=== PATIENT | female | born 1960 | race Caucasian/White ===

== ENCOUNTER 2021-09-01 10:44 | Emergency (ER) | payer OTHER, SELFPAY ==
--- NOTE | ~2021-09-01 | XR_ITS ---
XR knee RT 3V 09/01/2021 11:14 Indication: Right knee pain Procedure: Right knee pain Comparison: 3 views right knee Findings: Mild osteoarthritis of the right knee. No fracture, subluxation or dislocation. No signific ant joint effusion. No foreign bodies. Impression: 1: No acute fracture. Reviewed, dictated and finalized at location B. ICAL SUPERVISOR Impression: 1: No acute fracture.
[2021-09-01 10:53] VITALS: BP 162/86; PULSE 85; RESP 16; TEMP 37.2; O2SAT 99
--- NOTE | 2021-09-01 10:54 | ED.LOWEXIN ---
HPI - Extremity Injury (Lower) General Chief Complaint: Extremity Injury, Lower Stated Complaint: right knee pain Time Seen by Provider: 09/01/21 10:54 Source: patient, RN notes reviewed and old records reviewed Mode of arrival: ambulatory Limitations: no limitations History of Present Illness HPI Narrative: 61 yo female presents to the [facility] with C/O right knee pain since yesterday. States that she was walking up stairs carrying bottled water and felt a pop. She has a HX of orthopedic surgery in both knees. Has been resting, elevating and taking Tylenol as needed. Does have mild swelling to the right knee. MD complaint: knee injury (right) Related Data Home Medications Medication Instructions Recorded Confirmed alprazolam [Xanax] 0.5 mg PO DAILY 07/27/19 09/01/21 bupropion HCl 300 mg PO QAM 07/27/19 09/01/21 levothyroxine 50 mcg PO DAILY 07/27/19 09/01/21 lisinopril-hydrochlorothiazide 1 tablet PO DAILY 07/27/19 09/01/21 oxybutynin chloride 10 mg PO DAILY 07/27/19 09/01/21 zolpidem [Ambien] 5 mg PO HS 07/27/19 09/01/21 atorvastatin 20 mg PO DAILY 09/01/21 09/01/21 montelukast 10 mg PO DAILY 09/01/21 09/01/21 Allergies Allergy/AdvReac Type Severity Reaction Status Date / Time No Known Allergies Allergy Verified 09/01/21 11:02 Review of Systems Review of Systems: All systems reviewed & are unremarkable except as noted in HPI and below Constitutional: Constitutional: Reports no additional constitutional complaints Eyes: Eyes: Reports no additional eye complaints ENT: Reports system reviewed and no additional complaints, except as documented Cardiovascular: Cardiovascular: Reports no additional cardiovascular complaints Respiratory: Respiratory: Reports no additional respiratory complaints Gastrointestinal: Gastrointestinal: Reports no additional gastrointestinal complaints Musculoskeletal: Musculoskeletal: Reports as per HPI, Reports arthralgias (medial right knee) and Reports joint swelling (medial right knee) Integumentary/Breasts: Skin/Breast: Reports system reviewed and no additional complaints, except as docu and Denies rash Neurologic: Reports system reviewed and no additional complaints, except as documented Psychiatric: Psychiatric: Reports no additional psychiatric complaints Allergic/Immunologic: Allergic/Immunologic: Reports no additional allergic/immunologic complaints PMFSH Past Medical History Medical History (Updated 09/01/21 @ 11:04 by Lacie Mercer APRN) Anxiety and depression High cholesterol History of high blood pressure Thyroid disease Surgical History Surgical History (Updated 09/01/21 @ 11:08 by Lacie Mercer APRN) H/O knee surgery bilateral ortho Social History Social History (Updated 09/01/21 @ 11:04 by Lacie Mercer APRN) Smoking status: Former smoker Gender identity (if verbalized by the patient): Female Comments At the time of my signature, I reviewed and agree with the nursing past medical, surgical, social, and family history. There is no relevant family history pertinent to the patient complaint. Exam Const: General: healthy appearing, no acute distress and alert Nutritional Appearance: well nourished Orientation/consciousness: patient oriented x3 Limitations: no limitations HENMT: Head: normal to inspection Eyes: Pupils: Equal, round and reactive pupils present Neck: Neck: normal visual inspection, no lymphadenopathy and no meningeal signs Chest: Chest palpation & inspection: normal inspection of the chest Resp: Effort & Inspection: normal respiratory effort Auscultation: clear to auscultation bilaterally Cardio: Rate: regular rate Rhythm: regular rhythm : General: Yes no CVA tenderness Skin: General skin exam: normal color Rashes: no rashes Wounds: no wounds Neuro: General: patient oriented x3, moves all extremities, no meningeal signs and no focal motor deficits Cranial nerves: Yes Equal, round and reactive pupils
== END 2021-09-01 12:00 | disposition home or self-care (01) ==
PROVIDERS: Emergency Provider Nurse Practitioner; PCP Family Medicine
DX: M25.461 Effusion, right knee (principal); Z87.891 Personal history of nicotine dependence; E78.00 Pure hypercholesterolemia, unspecified; I10 Essential (primary) hypertension; F41.9 Anxiety disorder, unspecified; F32.A Depression, unspecified; E07.9 Disorder of thyroid, unspecified
CPT/HCPCS: 73562; 99213; G0463

== ENCOUNTER 2023-12-31 13:36 | Emergency (ER) | payer BC, SELFPAY ==
[2023-12-31 13:48] VITALS: BP 162/87; PULSE 86; RESP 16; TEMP 36.9; O2SAT 99
--- NOTE | 2023-12-31 13:49 | ED.FALL ---
HPI - Fall General Chief Complaint: Fall Stated Complaint: Fall/Head Injury Time Seen by Provider: 12/31/23 13:49 Source: patient Mode of arrival: ambulatory Limitations: no limitations History of Present Illness HPI Narrative: 63 yo F presents with c/o fall 3 days ago. Got up in the middle of the night and tripped over her dog that was laying on the floor. Fell down and hit head against wall while falling. Denies LOC. Was able to get up on her own. Went back to bed. Still having pain to hematoma. States hematoma is throbbing. Denies headache, vision change, N/V, sleepiness, extremity weakness or numbness. Ambulatory with steady gait. NO vision changes. pt stating she just wants to make sure she's ok and if hematoma should still be hurting. all systems reviewed and negative except as noted above. Related Data Home Medications Medication Instructions Recorded Confirmed alprazolam 0.5 mg tablet (Xanax) 0.5 mg PO DAILY 07/27/19 09/01/21 bupropion HCl 300 mg 24 hr tablet, 300 mg PO QAM 07/27/19 09/01/21 extended release levothyroxine 50 mcg tablet 50 mcg PO DAILY 07/27/19 09/01/21 lisinopril 10 1 tablet PO DAILY 07/27/19 09/01/21 mg-hydrochlorothiazide 12.5 mg tablet oxybutynin chloride 10 mg 10 mg PO DAILY 07/27/19 09/01/21 tablet,extended release 24 hr zolpidem 5 mg tablet (Ambien) 5 mg PO HS 07/27/19 09/01/21 atorvastatin 20 mg tablet 20 mg PO DAILY 09/01/21 09/01/21 montelukast 10 mg tablet 10 mg PO DAILY 09/01/21 09/01/21 Allergies Allergy/AdvReac Type Severity Reaction Status Date / Time No Known Allergies Allergy Verified 12/31/23 13:44 Review of Systems Review of Systems: CONSTITUTIONAL: Denies fever, chills, or sweats. EYES: Denies visual changes, redness, or discharge. ENT: Denies rhinorrhea, congestion, sore throat, or otalgia. CARDIOVASCULAR: Denies chest pain, palpitations, or edema. RESPIRATORY: Denies cough or dyspnea. GASTROINTESTINAL: Denies abdominal pain, nausea, vomiting, or diarrhea. GENITOURINARY: Denies dysuria or hematuria. SKIN: Denies rash or itching. Reports hematoma to side of scalp. MUSCULOSKELETAL: Denies back pain, joint pain, or myalgia. NEUROLOGIC: Denies headache, numbness, or weakness. PSYCHIATRIC: Denies anxiety or depression. All other systems reviewed are negative, except as documented in HPI. [facility] Past Medical History Medical History (Updated 12/31/23 @ 14:03 by Neyda Hartman NP) Anxiety and depression High cholesterol History of high blood pressure Thyroid disease Surgical History Surgical History (Updated 09/01/21 @ 11:08 by Lacie Mercer APRN) H/O knee surgery bilateral ortho Social History Social History (Updated 09/01/21 @ 11:04 by Lacie Mercer APRN) Smoking status: Former smoker Gender identity (if verbalized by the patient): Female Comments At time of signature, agree with nursing past medical, surgical, social and family history. There is no relevant family history pertinent to the presenting complaint. Exam Narrative: GENERAL: This is a well-nourished, well-developed patient, in no apparent distress. HEAD:hematoma to L occiput approx. 5cm diameter. tender no palpation. EYES: PERRL. Sclera clear/white. Vision is grossly intact. Extraocular motions intact EARS: External ears normal NOSE: External nose normal NECK: Neck supple, non-tender without lymphadenopathy, masses or thyromegaly. CARDIOVASCULAR: Regular rate and rhythm without murmurs, gallops, or rubs. RESPIRATORY: Clear to auscultation. Breath sounds equal bilaterally. No wheezes, rales, or rhonchi. SKIN: warm, Dry, intact with no suspicious lesions or rash, good texture and turgor. NEURO: awake, alert, and oriented to person, place and time. There were no obvious focal neurologic abnormalities. 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 Gait normal. EXTREMITIES: No joint tenderness, effusion, or edema noted. No calf tenderness. Negative Homans sign bilaterally. BACK: Nontender wi
== END 2023-12-31 14:10 | disposition home or self-care (01) ==
PROVIDERS: Emergency Provider Nurse Practitioner Family; PCP Family Medicine
DX: S09.90XA Unspecified injury of head, initial encounter (principal); S00.03XA Contusion of scalp, initial encounter; W01.0XXA Fall on same level from slipping, tripping and stumbling without subsequent striking against object, initial encounter; F41.9 Anxiety disorder, unspecified; F32.A Depression, unspecified; E78.00 Pure hypercholesterolemia, unspecified; I10 Essential (primary) hypertension; E07.9 Disorder of thyroid, unspecified; Z87.891 Personal history of nicotine dependence
CPT/HCPCS: 99212; G0463

== ENCOUNTER 2024-04-21 12:00 | Emergency (ER) | payer BC, SELFPAY ==
--- NOTE | ~2024-04-21 | CT_ITS ---
EXAMINATION: CT brain wo con DATE: 04/21/2024 13:08 INDICATION: Head injury. TECHNIQUE: Computed tomography (CT) of the head was performed without intravenous contrast. The mA wa s adjusted according to patient size. Iterative reconstruction technique was employed. The dose-lengt h product was 605.33 mGy-cm. COMPARISON: None FINDINGS: There is no intracranial hemorrhage, acute infarction, or abnormal intracranial mass lesion . The ventricles are normal in size. There is posterior scalp soft tissue swelling. There are likely changes of right ocular lens replacement surgery. There is mild mucosal thickening in the paranasal s inuses. The mastoid air cells are normal. IMPRESSION: 1. Normal brain. Reviewed, dictated and finalized at location A. IMPRESSION: 1. Normal brain.
[2024-04-21 12:22] VITALS: BP 161/109; PULSE 80; RESP 18; TEMP 36.2; O2SAT 98
[2024-04-21 13:50] VITALS: BP 149/84; PULSE 75; RESP 16; O2SAT 97
--- NOTE | 2024-04-21 14:18 | ED.HEATRA ---
HPI - Head Injury General Chief complaint: Head Injury Stated complaint: Hematoma after Fall Time Seen by Provider: 04/21/24 12:27 History of Present Illness HPI Narrative: Patient fell about 1-2 weeks ago and had a large bruise to the back of her head, did not follow up but noticed that there was some blood coming out of the lump on and off Related Data Home Medications Medication Instructions Recorded Confirmed alprazolam 0.5 mg tablet (Xanax) 0.5 mg PO DAILY 07/27/19 09/01/21 bupropion HCl 300 mg 24 hr tablet, 300 mg PO QAM 07/27/19 09/01/21 extended release levothyroxine 50 mcg tablet 50 mcg PO DAILY 07/27/19 09/01/21 lisinopril 10 1 tablet PO DAILY 07/27/19 09/01/21 mg-hydrochlorothiazide 12.5 mg tablet oxybutynin chloride 10 mg 10 mg PO DAILY 07/27/19 09/01/21 tablet,extended release 24 hr zolpidem 5 mg tablet (Ambien) 5 mg PO HS 07/27/19 09/01/21 atorvastatin 20 mg tablet 20 mg PO DAILY 09/01/21 09/01/21 montelukast 10 mg tablet 10 mg PO DAILY 09/01/21 09/01/21 Allergies Allergy/AdvReac Type Severity Reaction Status Date / Time No Known Allergies Allergy Verified 12/31/23 13:44 Review of Systems Review of Systems: All systems reviewed & are unremarkable except as noted in HPI and below PMFSH Past Medical History Medical History (Updated 04/21/24 @ 13:15 by Anaid Garcia MD) Anxiety and depression High cholesterol History of high blood pressure Thyroid disease Surgical History Surgical History (Updated 09/01/21 @ 11:08 by Lacie Mercer APRN) H/O knee surgery bilateral ortho Social History Social History (Updated 09/01/21 @ 11:04 by Lacie Mercer APRN) Smoking status: Former smoker Gender identity (if verbalized by the patient): Female Exam Narrative: EXAMINATION OF ORGAN SYSTEMS/BODY AREAS: Constitutional: Vital signs per nursing GENERAL:[No acute distress, non-toxic appearing.] HEAD: hematoma to the occiput scalp, healing scab EYES: EOMI, conjunctiva normal ENT: Hearing grossly intact LUNGS: Nonlabored breathing. HEART: [Regular rate and rhythm] ABD: [Soft], [nontender to palpation] EXT: Normal range of motion SKIN: [No rashes or lesions.] NEURO: [Alert and oriented x 3. No gross focal sensory or strength deficits.] PSYCH: Normal affect Course Vital Signs Vital signs: Vital Signs Temperature 97.2 F L 04/21/24 12:22 Pulse Rate 80 04/21/24 12:22 Respiratory Rate 18 04/21/24 12:22 Blood Pressure 161/109 H 04/21/24 12:22 Pulse Oximetry 98 04/21/24 12:22 Oxygen Delivery Room Air 04/21/24 12:22 Temperature 97.2 F L 04/21/24 12:22 Pulse Rate 75 04/21/24 13:50 Respiratory Rate 16 04/21/24 13:50 Blood Pressure 149/84 H 04/21/24 13:50 Pulse Oximetry 97 04/21/24 13:50 Oxygen Delivery Room Air 04/21/24 12:22 MDM - Head Injury MDM Narrative Medical decision making narrative: patient presents here with healing hematoma that had been bleeding, on exam there is no active bleeding and there is a scab in place, no signs of infection, no neurologic deficits, CT obtained to make should not large hematoma or other intracranial abnormality this is negative, patient well appearing stable for discharge Discharge Plan Discharge Clinical Impression: Hematoma of occipital region of scalp Patient Disposition: Home, Self-Care Condition: Stable Instructions: Antibiotic Form, Hematoma (ED) Additional Instructions: Please follow up with your doctor; you can always return for any further issues. Prescriptions: No Action oxybutynin chloride 10 mg Tablet Extended Release 24hr 10 mg PO DAILY alprazolam [Xanax] 0.5 mg Tablet 0.5 mg PO DAILY levothyroxine 50 mcg Tablet 50 mcg PO DAILY zolpidem [Ambien] 5 mg Tablet 5 mg PO HS lisinopril-hydrochlorothiazide 10-12.5 mg Tablet 1 tablet PO DAILY bupropion HCl 300 mg Tablet Extended Release 24 Hr 300 mg PO QAM atorvastatin 20 mg tablet 20 mg PO DAILY montelukast 10 mg tablet 10 mg PO DAILY diclofenac sodium [Voltaren Arthritis Pain] 1 % gel 2 g topical QID Qty: 100 0RF Rx Instructions: apply to single elbow, wrist or hand; for hand includes palm/fingers/back of hand Follow-up/Referrals: Artie,Reinaldo Oreilly APRN [Primary Care Provider] - 2 Days
== END 2024-04-21 13:50 | disposition home or self-care (01) ==
PROVIDERS: Emergency Provider Emergency Medicine; PCP Nurse Practitioner Family
DX: S00.03XA Contusion of scalp, initial encounter (principal); I10 Essential (primary) hypertension; E78.00 Pure hypercholesterolemia, unspecified; E07.9 Disorder of thyroid, unspecified; F41.9 Anxiety disorder, unspecified; F32.A Depression, unspecified; Z87.891 Personal history of nicotine dependence; Z79.899 Other long term (current) drug therapy; W19.XXXA Unspecified fall, initial encounter
CPT/HCPCS: 70450; 99284

== ENCOUNTER 2024-12-06 14:58 | Outpatient (CLI) | payer OTHER, SELFPAY ==
--- OUTSIDE RECORDS SUMMARY | 2024-12-06 15:05 | XMS_ITS | Continuity of Care Document ---
Author Organization [facility] Address [address] [place] [address] Phone Care Team Providers Care Physician Office Clin Asst Name Role Phone Musa Cardoza Unavailable Unavailable Procedures Procedure Date Eye Exam, New Patient Refraction Advance Directives Directive Yes / No Effective Date File Name No Information Encounters Encounter Description Practice Location Reason(s) For Visit Diagnoses Date Provider Providers Copied on Encounter [facility], [address], [place], [place], [id number], [place] tel:[phone] [facility] [place] No Information Sep- 3-201 0 Sarayshari Vigil. [address], [place], [address], [place]. tel:[phone] Family History Family Member Type Diagnosis Age At Onset No Information Payers Payer name Insurance type Covered libertarian ID Authoriza tion(s) [employer] Plan CI [id number] Social History Type Description Quantity Date Captured Comments Sex Female Smoking Status No Information Chief Complaint And Reason For Visit No Information Reason For Referral Reason For Referral No Information History Of Present Illness Encounter Date Complaint History Of Prese nt Illness No Information Functional Status Date Functional Assessmen t No Information Instructions Date Instruction Additional Infor mation No Information Assessments Type Assessment Date No Information Patient Care Teams Name Effective Dates (start - stop) Status Members No Information
--- OUTSIDE RECORDS SUMMARY | 2024-12-06 15:06 | XMS_ITS | Data Portability ---
Author Organization [place] - [employer], Main Office Address [address] [place] [address] Assessment No assessment recorded. Plan of Treatment Reminders Order Date Submit Date Provider Last Modified By Organization Details Last Modified Time Details Appointments Follow Up 15 2024 01:45P Feliciano abel MD Not available Not available Not available Lab lipid panel, serum [address] Out[facility], [address] [place], [address], 09/26/2024 16:03:46 CMP, serum or plasma [address] Out[facility], [address] [place], [address], 09/26/2024 16:03:57 CBC w/ auto diff [address] Outpatient Lab, [address] [place], [address], 09/26/2024 16:04:06 TSH + free T4, serum [address] Out[facility] Lab, [address] [place], [address], 09/26/2024 16:04:16 vitamin D, 25-hydrox y, total, serum [address] Outpatient Lab, [address] [place], [address], 09/26/2024 16:04:25 vitamin B12 + folate, serum or blood [address] - Outpatient Lab, [address] [place], [address], 09/26/2024 16:04:35 drug of abuse panel, urine 2023 024 [facility] (Lab), [address] [place], [address], 02/17/2024 19:53:55 lipid panel, serum 2023 024 [facility] (Lab), [address] [place], [address], 11/18/2023 23:18:17 hepatic function panel, serum [email or web address] (Lab), [address] [place], [address], 11/25/2023 08:08:07 TSH, serum or plasma 2023 024 [facility] (Lab), [address] [place], [address], 11/18/2023 23:18:17 CBC w/ auto diff 2023 024 [facility] (Lab), [address] [place], [address], 11/18/2023 23:18:17 vitamin D, 25-hydrox y, total, serum 2023 024 [facility] (Lab), [address] [place], [address], 11/18/2023 23:18:17 vitamin B12 + folate, serum or blood 2023 024 [facility] (Lab), [address] [place], [address], 11/18/2023 23:18:17 glycohemo globin, total, blood 2023 024 [email or web address] [facility] (Lab), [address] [place], [address], 11/25/2023 08:08:07 BMP, serum or plasma 2023 024 [facility] (Lab), [address] [place], [address], 11/18/2023 23:18:17 Referral psychiatr ist referral - Please call patient to schedule an appointme nt. Thank you. 2024 025 adam Khan MD, [address], [address], [place], [address], 10/11/2024 08:35:38 urologist referral - Please call patient to schedule an appointme nt. Thank you. [address] [facility], [address], [address], [place], [address], 10/11/2024 08:35:24 Procedures colonosco py screening (PROC) - Pleas call patient to schedule an appointme nt. Thank you. 2024 025 TONY Prabhakar MD, [address] [place], [address], 09/13/2024 15:38:04 Surgeries None recorded. Imaging bone density - Please call patient to schedule. OON w/ [facility] 2024 025 [facility] Central Scheduling, [address] [facility], [place], [address], 09/21/2024 10:03:27 Medication Orders atorvasta tin 20 mg tablet [address] [facility], [address], [place], [place], [id number], 09/12/2024 15:21:[address] 10 mg tablet [address] [facility]22097, [address] , [place], [place], [id number], 09/12/2024 15:21:28 bupropion HCl XL 150 mg 24 hr tablet, extended release [address] [facility]67077, [address] , [place], [place], [id number], 09/12/2024 15:21:28 paroxetin e 10 mg tablet [address] [facility]07703, [address] , [place], [place], [id number], 09/12/2024 15:21:28 lisinopri l 20 mg-hydroc hlorothia zide 12.5 mg tablet [address] [facility]32106, [address] [facility], [place], [place], [id number], 09/12/2024 15:21:28 oxybutyni n chloride ER 10 mg tablet,ex tended release 24 hr [address] [facility]59016, [address] [facility], [place], [place], [id number], 09/12/2024 15:21:28 levothyro xine 100 mcg tablet [address] [facility] #50159, [address], [place], [place], [id number], 09/12/2024 15:21:28 lisinopri l 20 mg-hydroc hlorothia zide 12.5 mg tablet 2023 024 KATERINA [facility] #47728, [address], [place], [place], [id number], 02/17/2024 14:18:59 ciproflox acin 500 mg tablet 2022 023 [email or web address] [facility] #24122, [address], [place], [place], [id number], 09/05/2023 11:18:09 hydrocodo ne 5 mg-acetam inophen 325 mg tablet 2022 023 [email or web address] [facility] #57364, [address], [place], [place], [id number], 09/05/2023 11:18:29 Patient TargetsNo targets recorded. Patient Instructions Encounter Date Encounter Id Patient Instructions Last Modified By Organization Details Last Modified Time 09/12/2024 [id number] dual-energy x-ra y absorptiometry (dxa) test: about this test brijeshtodd Beyer Not available 09/12/2024 15:21:27 Reason for Referral Urologist Referral for Urina ry incontinence Please call patient to schedule an appointment. Thank you. Referring Physician: Aziza Gurrola, Internal Medicine, Encounter Date: 09/12/2024 Psychiatrist Referral for Ge neralized anxiety disorder Please call patient to schedule an appointment. Thank you. Referring Physician: Aziza Gurrola, Internal Medicine, Encounter Date: 09/12/2024 Results Created Date Observation Date Name Description Value Unit Range Abnormal Flag Note LastModifiedBy Organization Detail LastModifiedTime 03/16/20 23 03/16/2023 rapid flu (A+B) Flu A negati ve Not Available [facility] [address], [place], [address], 03/15/2023 17:38:35 03/16/20 23 03/16/2023 rapid flu (A+B) Flu B negati ve Not Available [facility] [address], [place], [address], 03/15/2023 17:38:35 11/10/19 23 11/09/2022 CT, abdom en + pelvi s, w/o contr ast No observ ation record ed. [email or web address] [facility] [address] [place], [address], 11/09/2022 16:08:04 10/10/19 24 10/10/2023 MAMMO , scree lesia, digit al, bilat eral [facility] [address] [place] [address] [phone] Patien t Name: MARILEE JOEL ion #: [id number] Sex: F : 1959 5 Dictat ed By: Fany Servin Attend ing Physic karina: VAISHNAVI MCBRIDE Orderi Physic karina: VAISHNAVI MCBRIDE Exam Date: 2023 14:05 PM Exam Name: MG SCRN BREAST RAH BILAT Admitt ing Diagno sis(es ): SCREEN ING MAMMOG STEPHENIE WITH TOMOSY NTHESI S: REASON FOR EXAM: screen ing mammog stephenie COMPAR MARIPOSA: 22; 021 TECHNI QUE: Bilate ral CC and MLO views obtain ed. Images were obtain ed using a Digita l [place] nthesi s Unit. Standa rd 2D and 3D [place] nthesi s images were review ed. FINDIN GS: BREAST COMPOS ITION: The bilate ral breast s are hetero geneou sly dense, which may obscur e small masses . In the right breast , no asymme trical parenc hymal patter n, wagner ectura l distor tion, pleomo rphic microc alcifi cation s or masses . In the left breast , no asymme trical parenc hymal patter n, wagner ectura l distor tion, pleomo rphic microc alcifi cation s or masses . IMPRES KEITH: No findin gs of malign osmani. Recomm end annual mammog stephenie. BIRADS : 2 - Benign Electr onical ly Signed by: Fany Servin at 2023 14:43: 43 PM Page 1 [facility] ([facility] Sched[facility]) [address] [facility], [place], [address], 10/10/2023 19:10:46 04/21/20 24 04/21/2024 CT, brain , w/o contr ast No observ ation record ed. [email or web address] [facility] [address], [place], [address], 04/24/2024 11:53:46 09/22/19 25 09/20/2024 bone densi ty No observ ation record ed. [facility], [place], [address], 09/21/2024 10:03:28 Result Notes None recorded. Problems Name Problem SNOMED Code Status Onset Date Resolution Date Notes Provider Name and Address Organization Details Recorded Time Benign hypertensi on 15407147 Active 2017 Not Available [facility] 3 09:18:11 Bilateral knee pain Active 2016 Not Available [facility] 3 09:18:11 Pain in throat 486297314 Active 2022 Not Available [facility] 3 09:18:11 Mammograph y abnormal 612144106 Completed Not Available [facility] 3 09:18:11 MRI scan abnormal 302620556 Completed Not Available [facility] 3 09:18:11 Closed fracture of distal end of radius 34457021 Active Not Available [facility] 3 09:18:11 Fracture of phalanx of foot 95908004 Completed Not Available [facility] 3 09:18:12 Uterine prolapse 49092049 Active 2018 Not Available [facility] 3 09:18:12 Knee pain Completed Not Available [facility] 3 09:18:12 Hyperthyro idism 74243796 Completed Not Available [facility] 3 09:18:12 Depressive disorder 31456316 Active Not Available [facility] 3 09:18:12 Osteoarthr itis 197578369 Active Not Available [facility] 3 09:18:12 Sleep disorder 15613095 Active 2017 Not Available [facility] 3 09:18:12 Hypothyroi dism 49667263 Active Not Available [facility] 3 09:18:12 Foot pain 18820468 Active Not Available [facility] 3 09:18:12 Cough 85562542 Active 2022 Not Available [facility] 3 09:18:13 Hyperlipid emia 84458782 Active 2019 Not Available [facility] 3 09:18:13 Fracture of forearm 36913818 Active Not Available [facility] 3 09:18:13 Anxiety 02674902 Active 2022 Connie Rosario MD [address] [facility], [address], [place], [address] , [facility] 3 13:54:51 Abdominal pain 61455211 Active 2022 VESNA aHyes [address], [address], [place], [address] , [facility] 3 17:46:45 Urinary tract infectious disease 84880335 Active 2022 VESNA Hayes [address], [address], [place], [address] , [facility] 3 10:52:24 Upper respirator y infection 23108800 Active 2022 Sole Bertrand RN null, [facility] 3 17:38:37 Vitamin D deficiency 04334708 Active 2023 ETHAN Sahu [address], [address], [place], [address] , [facility] 4 12:07:06 Finding of vitamin B12 level 758559203 Active 2023 ETHAN Sahu [address], [address], [place], [address] , [facility] 4 12:09:46 Essential hypertensi on 41120258 Active 2023 ETHAN Sahu [address], [address], [place], [address] , [facility] 4 14:14:48 Generalize d anxiety disorder 20809792 Active 2024 Aziza graham MD [address], [address], [place], [address] , [facility] 5 14:49:09 Urinary incontinen ce 152498532 Active 2024 Aziza graham MD [address], [address], [place], [address] , [facility] 5 14:51:05 Allergic rhinitis 19487790 Active 2024 Aziza graham MD [address], [address], [place], [address] , [facility] 5 15:13:57 Serum vitamin B12 below reference range 858110460 Active 2024 Aziza graham MD [address], [address], [place], [address] , [facility] 5 15:21:49 Seasonal allergy 788650223 Active 2024 Aziza graham MD [address], [address], [place], [address] , [facility] 18:57:29 Acute sinusitis 40779170 Active 2024 Lise Wallis, BLAKE null, [facility] 14:55:31 Problem Notes None recorded. Procedures Surgical History Date Name Laterality Status Provider Name and Address Organization Details Recorded Time Rotator cuff surgery completed Not Available [facility] 09/08/2022 09:13:35 excision of cyst of breast completed Beatrice Lares MA [facility] 09/12/2024 14:24:23 Unlisted px arthroscopy completed Not Available [facility] 09/08/2022 09:13:35 Orthopedic Surgery completed Not Available [facility] 09/08/2022 09:13:35 Tubal Ligation completed Beatrice Lares MA [facility] 09/12/2024 14:24:33 Imaging Results None recorded. Procedure Notes None recorded. Medical Equipment None Reported. Allergies No known drug allergies Medications Name Sig Start Date Stop Date Status Note LastModified by Organization Details LastModified Time amoxicillin 500 mg capsule active Not Available Not Available Not Available bupropion HCl SR 150 mg tablet,12 hr sustained-r elease TAKE ONE TABLET DAILY active Not Available Not Available No t Available prednisone 10 mg tablet 30mg x 2 days, 20mg x 2 days, 10mg x 2 days active Not Available Not Available No t Available paroxetine 10 mg tablet TAKE 1 TABLET BY MOUTH DAILY AT BEDTIME active Not Available Not Available No t Available atorvastati n 20 mg tablet TAKE 1 TABLET BY MOUTH EVERY DAY 2024 active Not Available Not Available Not Avai lable lisinopril 20 mg-hydrochl orothiazide 12.5 mg tablet Take 1 tablet every day by oral route. 2024 active Not Available Not Available Not Avai lable oxybutynin chloride ER 10 mg tablet,exte nded release 24 hr TAKE 1 TABLET BY MOUTH EVERY DAY active Not Available Not Available No t Available azithromyci n 250 mg tablet TAKE 2 TABLETS (500 MG) BY ORAL ROUTE ONCE DAILY FOR 1 DAY THEN 1 TABLET (250 MG) BY ORAL ROUTE ONCE DAILY FOR 4 DAYS 09/05 completed Not Available Not Available Not Available benzonatate 200 mg capsule Take 1 capsule 3 times a day by oral route as needed. 09/12 completed Not Available Not Available Not Available hydrocodone 5 mg-acetamin ophen 325 mg tablet TAKE 1 TABLET BY MOUTH EVERY 6 HOURS NEEDED 09/05 completed Not Available Not Available Not Available ondansetron HCl 4 mg tablet TAKE 1 TABLET BY MOUTH EVERY 8 HOURS 09/05 completed Not Available Not Available Not Available prednisone 20 mg tablet TAKE 2 TABLETS BY MOUTH EVERY DAY FOR 5 DAYS 09/05 completed Not Available Not Available Not Available ciprofloxac in 500 mg tablet TAKE 1 TABLET BY MOUTH EVERY 12 HOURS FOR 10 DAYS 09/05 completed Not Available Not Available Not Available tramadol 50 mg tablet TAKE 1 TABLET BY MOUTH EVERY 6 HOURS 02/16 completed Not Available Not Available Not Available amoxicillin 500 mg tablet Take 1 tablet 3 times a day by oral route. active Not Available Not Available No t Available ketorolac 10 mg tablet 02/19 completed Not Available Not Available Not Available levothyroxi ne 100 mcg tablet TAKE 1 TABLET BY MOUTH EVERY DAY 2024 active Not Available Not Available Not Avai lable alprazolam 0.5 mg tablet TAKE 1 TABLET BY MOUTH TWICE DAILY NEEDED active Not Available Not Available No t Available amoxicillin 875 mg tablet Take 1 tablet every 12 hours by oral route for 7 days. active Not Available Not Available No t Available alprazolam 0.25 mg tablet TAKE ONE TABLET DAILY AT BEDTIME 09/02 completed Not Available Not Available Not Available trazodone 100 mg tablet 1 po qhs prn insomnia active Not Available Not Available No t Available levothyroxi ne 50 mcg tablet TAKE ONE TABLET DAILY IN THE MORNING ON AN EMPTY STOMACH 11/27 completed Not Available Not Available Not Available hydrocodone 7.5 mg-acetamin ophen 325 mg tablet TAKE 1 TABLET EVERY 8-12 HOURS NEEDED 11/29 completed Not Available Not Available Not Available cephalexin 500 mg capsule TAKE 1 CAPSULE BY MOUTH EVERY 8 HOURS FOR 10 DAYS 09/05 completed Not Available Not Available Not Available paroxetine 20 mg tablet Take 1 tablet every day by oral route. active Not Available Not Available No t Available diclofenac sodium 75 mg tablet,nitin yed release 06/16 completed Not Available Not Available Not Available etodolac 400 mg tablet Take 1 tablet twice a day by oral route for 30 days. active Not Available Not Available No t Available montelukast 10 mg tablet TAKE 1 TABLET BY MOUTH DAILY active Not Available Not Available No t Available zolpidem 5 mg tablet TAKE 1 TABLET BY MOUTH EVERY DAY AT BEDTIME NEEDED FOR INSOMNIA 02/16 completed Not Available Not Available Not Available lisinopril 10 mg-hydrochl orothiazide 12.5 mg tablet TAKE 1 TABLET BY MOUTH EVERY DAY IN THE MORNING 09/12 completed Not Available Not Available Not Available methylpredn isolone 4 mg tablets in a dose pack Take 1 package by oral route. 11/29 completed Not Available Not Available Not Available fluticasone propionate 50 mcg/actuati on nasal spray,suspe nsion [place] 2 sprays every day by intranasa l route. 06/16 completed Not Available Not Available Not Available doxycycline hyclate 100 mg tablet TAKE 1 TABLET BY MOUTH TWICE DAILY FOR 7 DAYS 09/05 completed Not Available Not Available Not Available naproxen 500 mg tablet TAKE 1 TABLET TWICE A DAY WITH FOOD 09/12 completed Not Available Not Available Not Available amoxicillin 875 mg-potassiu m clavulanate 125 mg tablet Take 1 tablet twice a day by oral route for 7 days. 2024 active Not Available Not Available Not Avai lable bupropion HCl XL 300 mg 24 hr tablet, extended release TAKE 1 TABLET BY MOUTH EVERY DAY 02/08 completed Not Available Not Available Not Available bupropion HCl XL 150 mg 24 hr tablet, extended release TAKE 1 TABLET BY MOUTH EVERY DAY 2024 active Not Available Not Available Not Avai lable Prempro 0.3 mg-1.5 mg tablet Take 1 tablet every day by oral route for 90 days. 05/25 completed Not Available Not Available Not Available Suprep Bowel Prep Kit 17.5 gram-3.13 gram-1.6 gram oral solution active Not Available Not Available Not Available Afluria Qd 2018- (36 mos up)(PF)60 mcg (15 mcg x4)/0.5 mL IM syringe ADM 0.5ML IM UTD 09/05 completed Not Available Not Available Not Available Vitals Date Recorded Body height Body mass index (BMI) Body weight Body temperature Heart rate Oxygen saturation Oxygen saturation in Arterial blood by Pulse oximetry Systolic blood pressure Diastolic blood pressure Provider Name and Address Organization Details Last Updated DateTime 5 162.56 cm 29.4 kg/m2 26593.3 g 97 [degF] 77 /min 98 % 98 % 170 mm[Hg] 92 mm[Hg] KANDIS Riley [facility] [employer] [facility] 5 14:18:45 Date Recorded Body weight Body mass index (BMI) Body height Body temperature Heart rate Oxygen saturation Oxygen saturation in Arterial blood by Pulse oximetry Systolic blood pressure Diastolic blood pressure Provider Name and Address Organization Details Last Updated DateTime 3 78332.8 1 g 31.2 kg/m2 162.56 cm 99.3 [degF] 83 /min 93 % 93 % 148 mm[Hg] 96 mm[Hg] ELVA Price [facility] [employer] [facility] 3 10:35:26 Date Recorded Body height Body mass index (BMI) Body weight Body temperature Heart rate Oxygen saturation Oxygen saturation in Arterial blood by Pulse oximetry Systolic blood pressure Diastolic blood pressure Provider Name and Address Organization Details Last Updated DateTime 4 162.56 cm 30.7 kg/m2 17477.0 3 g 100 [degF] 90 /min 94 % 94 % 170 mm[Hg] 98 mm[Hg] [facility] [place] [employer] [facility] 4 11:51:53 Date Recorded Body height Body mass index (BMI) Body weight Body temperature Heart rate Oxygen saturation Oxygen saturation in Arterial blood by Pulse oximetry Systolic blood pressure Diastolic blood pressure Provider Name and Address Organization Details Last Updated DateTime 4 162.56 cm 29.9 kg/m2 93570.0 7 g 97.5 [degF] 59 /min 92 % 92 % 172 mm[Hg] 100 mm[Hg] ELVA Mcgarry [place] [employer] [facility] 4 14:05:26 Date Recorded Body height Provider Name an d Address Organization Details Last Updated DateTime 03/16/2023 162.56 cm ELVA Sanabria [place] [employer] [facility] 03/16/2023 10:37:29 Social History Question Answer Notes LastModified by Organization Details LastModified Time Tobacco Smoking Status Former Smoker quit mid 40s AVINASH Cooper [place] [facility] 11/17/2022 10:12:38 Are You Blind Or Do You Have Difficulty Seeing? No [email or web address] Information not available 11/17/2022 What Is Your Level Of Caffeine Consumption? Occasional Information not available 09/12/2024 How Much Tobacco Do You Chew? None [id number] Information not available 09/08/2022 In The 14 Days Before Symptom Onset, Have You Had Close Contact With A Laboratory-confi rmed COVID-19 While That Case Was Ill? No Information not available 09/12/2024 In The 14 Days Before Symptom Onset, Have You Had Close Contact With A Person Who Is Under Investigation For COVID-19 While That Person Was Ill? No Information not available 09/12/2024 Are You Deaf Or Do You Have Serious Difficulty Hearing? No [email or web address] Information not available 11/17/2022 What Type Of Diet Are You Following? [id number] [id number] Information not available 09/08/2022 Have There Been Any Changes To Your Family Or Social Situation? No Information not available 09/12/2024 When Did You Quit Smoking? 16+yearssincelastci [email or web address] Information not available 09/12/2024 Do You Use Insect Repellent Routinely? No Information not available 09/12/2024 Where Do You Live? SingleLevelHouse Information not available 09/12/2024 What Was The Date Of Your Most Recent Tobacco Screening? 09/12/2024 Information not available 09/12/2024 How Many Children Do You Have? 1 Information not available 09/12/2024 Do You Have Any Pets? Yes Information not available 09/12/2024 What Is Your Relationship Status? Information not available 09/12/2024 Do You Have Smoke And Carbon Monoxide Detectors In Your Home? Yes Information not available 09/12/2024 At What Age Did You Start Smoking Tobacco? 20 Information not available 09/12/2024 Are You Passively Exposed To Smoke? No Information not available 09/12/2024 Are There Any Smokers In Your House? No Information not available 09/12/2024 How Much Tobacco Do You Smoke? 1 PPD Information not available 09/12/2024 Do You Use Sunscreen Routinely? No Information not available 09/12/2024 Have You Recently Traveled Abroad? No Information not available 09/12/2024 Do You Have Difficulty Walking Or Climbing Stairs? No [email or web address] Information not available 11/17/2022 Do You Have Any Dietary Restrictions? No [email or web address] Information not available 11/17/2022 Sex: Unknown Functional Status Question Answer Note LastModified by Organizat ion Details LastModified Time Do you use any illicit or recreational drugs? No [email or web address] Information not available 11/17/2022 Do you or have you ever used any other forms of tobacco or nicotine? No Information not available 09/12/2024 What is your level of alcohol consumption? Occasional [id number] Information not available 09/08/2022 Do you or have you ever used smokeless tobacco? Never used smokeless tobacco [id number] Information not available 09/08/2022 Are you currently employed? No Information not available 09/12/2024 Are you able to walk? YESWOREST Information not available 11/17/2022 Do you have difficulty doing errands alone? No [email or web address] Information not available 11/17/2022 Are you able to care for yourself? 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 Never used electronic cigarettes [email or web address] Information not available 11/17/2022 What is your exercise level? Occasional [id number] Information not available 09/08/2022 Mental Status Question Answer Note LastModified by Organizat ion Details LastModified Time Do you feel stressed (tense, restless, nervous, or anxious, or unable to sleep at night)? [id number] [email or web address] Information not available 11/17/2022 Do you have difficulty concentrating, remembering or making decisions? No Information no t available 11/17/2022 Family History Relationship Description Onset Age of this Age Resolved Age Notes LastModified by Organization Details LastModified Time Brother Diabetes mellitus [id number] Not available 09/08/2022 09:13:36 Sister Rheumatoid arthritis frivastorres Not available 04/2024 11:44:45 Sister Disorder of thyroid gland [id number] Not available 09/08/2022 09:13:36 Father Malignant neoplasm of lung frivastorres Not available 04/2024 11:44:45 Mother Malignant neoplasm of lung frivastorres Not available 04/2024 11:44:45 Paternal Grandmother Malignant tumor of breast frivastorres Not available 04/2024 11:44:45 Medical History No medical history recorded. Gynecological History Statement/Question Response How many live births 2 Date of Last Colonoscopy Date of Last Mammogram Date of LMP Most Recent Bone Density Date of Last Pap Current Control Method Menopause Obstetrics History GPAL:G 2 P 2 0 0 2 Type Value Multiple Births 0 Full Term 2 Induced 0 Spontaneous 0 Premature 0 Living 2 Ectopics 0 Total 2 Immunizations Vaccine Type Date Status Note Provider Nam e and Address Organization Details Recorded Time Influenza, split virus, trivalent, PF 9 completed Neyda Pruett RN [facility], [place] - [facility] 09/05/2023 11:19:54 Influenza, split virus, trivalent, preservative 4 completed Not Available [facility] 11/11/2022 16:59:47 Influenza, split virus, trivalent, PF 3 completed Not Available [facility] 11/11/2022 16:59:47 Past Encounters Encounter ID Performer Location Encounter Start Date Encounter Closed Date Diagnosis/Indication Diagnosis SNOMED-CT Code Diagnosis ICD10 Code Diagnosis Note [id number] VESNA Hayes [facility] Primary Care [facility] [address] [place] [address] 09/17/2020 00:00:00 09/17/2020 16:48:41 [id number] Connie Rosario MD [facility] Primary Care [place] [address] [place] [address] 02/05/2021 00:00:00 02/05/2021 17:31:04 [id number] Connie Rosario MD [facility] Primary Care [place] [address] [place] [address] 02/08/2022 00:00:00 02/08/2022 09:26:26 [id number] Connie Rosario MD [facility] Primary Care [place] [address] [place] [address] 05/04/2022 00:00:00 05/04/2022 12:20:35 [id number] RILEY Jackson [facility] Primary Care [place] [address] [place] [address] 07/28/2022 00:00:00 07/28/2022 12:43:33 [id number] RILEY Jackson [facility] Primary Care [place] [address] [place] [address] 08/02/2022 00:00:00 08/02/2022 12:21:24 [id number] VESNA Hayes [facility] Primary Care [place] [address] [place] [address] 11/17/2022 10:09:17 11/17/2022 11:05:40 Urinary tract infectious disease 44500451 N39.0 New problemNot improving with abx prescribed by ER provider.W ill change from keflex to cipro. Advised continue increased fluid intake to flush urinary tract. Discussed proper feminine hygiene (wipe front to back, unscented soaps/mois turizers, empty bladder immediatel y after sexual activity). Encouraged use of probiotics . Bereavement 65791036 Z63 .4 Not improvedHi ghly encouraged pt to consider counseling . Denies any SI/HI at this time. Detention unsettled [id number] 638450 Z60.0 Planning to retire at the end of December. [id number] Connie Rosario MD [facility] Primary Care [address] [place] [address] 03/16/2023 10:08:57 03/16/2023 10:41:22 [id number] Connie Rosario MD [facility] Primary Care [address] [place] [address] 11/18/2023 11:43:07 11/18/2023 12:22:26 Adult health examination 144798874 Z00.00 Encouraged fresh fruits and veggies-lo w intake bothIncrea se daily water intake-2 bottles water/day, no other drinksEnco urage 30 mins of daily exercise-d oes not exerciseCo lonoscopy- due in 5 yearsWell woman exams-does n't remember last pap, mammogram completed this yearDEXA-n ot neededLDCT -not a smoker Hyperlipid emia screening 922164182 Z13.220 Thyroid di sorder screening 565476700 Z13.29 Diabetes m ellitus screening 113029929 Z13.1 Anemia screening 7356301 07 Z13.0 Vitamin D deficiency 347 90143 E55.9 Finding of vitamin B12 level 675922846 R79.9 [id number] ETHAN Sahu [facility] Primary Care [address] [address] 02/17/2024 13:58:57 02/17/2024 14:23:14 Long-term drug therapy 259425360 Z79.899 Pt denies any lending, selling, or borrowing of medication s. Denies any cp, sob, palpitatio ns, or unusual weight loss.Revie wed controlled substance agreement requiremen ts. Refill given.[place] checked today. Essential hypertension 57768353 I10 bp 172/100, 61 no de jesus cp sobcontinu es lisinopril increasing to 20mgencour aged 6-8 glasses of water [id number] Aziza graham MD [facility] Primary Care [address] [place] [address] 09/12/2024 14:11:32 09/12/2024 15:22:52 Screening - NAD 191920860 Z13.9 C-scope: Get this Mammogram: 10/10/2023 : Neg DEXA: Get this done PAP: Can see OB Get yearly flu shot, get Tdap if not doneGet Shingrix vaccineGet COVID 19 boostersGe t RSV vaccineGet prevnar #20 RTC in 3 months, do labs, ER if worse, she did verbalize her understand ing of the above Generalize d anxiety disorder 83886593 F41.1 On bupropion XL 150mg dailyOn paroxetine 10mg dailyRenew ed 09/12/2024 , explained that she must see psychiatry for controlled meds, and this was provided Hypothyroidism 05961517 E03.9 On levothyrox ine 100mcgs daily, renewed 09/12/2024 , get labs Essential hypertension 18999201 I10 On lisinopril -HCTZ 20-12.5mg daily, renewed 09/12/2024 Get labs Hyperlipidemia 75205310 E78.5 On atorvastat in 20mg daily, renewed 09/12/2024 Get labs Screening for osteoporosis 036351160 Z13.820 Z78.0 Screening for malignant neoplasm of colon 726453242 Z12.11 Urinary incontinence 165 744877 R32 Get a urolgist aptOn oxybutynin , renewed 09/12/2024 Seasonal allergy 8932960 04 J30.2 Renewed the singulair Vitamin D deficiency 347 33175 E55.9 Serum chanel min B12 below reference range 742937884 R79.89 Health Concerns Section Related Observation LastModified by Organization Detai ls LastModified Time None Recorded Concern Status LastModified by Organization Details LastModified Time None Recorded Advance Directives Directive None Recorded Payers Encounter Date Sequence Insurance Name Policy Number Policy Villegas Covered Member ID Villegas Member ID Guarantor Name 11/17/2022 1 [facility] [id number] Marileedaphney Joel [id number] Marilee L Joel 03/16/2023 1 [employer] [id number] Marilee Joel [id number] Marileedaphney Watkinsens 11/18/2023 1 [place] [id number] Marileedaphney Joel [id number] Marilee L Joel 02/17/2024 1 [place] [id number] Marilee Joel [id number] Marilee Joel 09/12/2024 1 [facility] [place] [place] Marilee Joel [id number] Marilee oJel Notes Date Note Type Note Provider Name and Address Organization Details Recorded Time 11/17/2022 text/html 1. Pt in office for problem visit with c/o having left-sided abd pain for over a week . Pt states ER provider dx her with a severe UTI. Started her on Keflex, but pt states she doesn't seem to be getting any better. Pt states prescribed tramadol isn't helping with the pain.2. Pt states she is planning to retire at the end of December.3. Pt states that her last Mar. States she hasn't done any counseling or really taken any time to grieve his passing. VESNA Hayes [address], [place], [address], [employer] 11/17/2022 19:23:47 11/18/2023 text/html pt is here for annual physical ETHAN Sahu [email or web address], [place], [address], [employer] 11/18/2023 12:34:07 02/17/2024 text/html pt is here for f/u VESNA Sahu-Kandice [email or web address], [place], [address], [employer] 02/17/2024 14:20:40 09/12/2024 text/html OV 09/12/2024: Here to establish care Present Hx:HTNHypothyroid ismDepressionUIHL D Here to discuss above and get labs and also get her medication refills Aziza Gurrola MD [address], [place], [address], [employer] 09/12/2024 19:00:44 OBGyn Episode No OBEpisode recorded.
--- OUTSIDE RECORDS SUMMARY | 2024-12-06 15:06 | XMS_ITS | Clinical Summary ---
Author Organization [facility] Address [address] [place] [address] Care Team Providers Care Accountant Assistant Name Role Phone Unavailable Primary Care Provider Unavailabl e Source Comments [facility],non-owned Affiliates and Associated Physician Practices is amultiple site organization consisting of ambulatory clinics and hospital sitesin [place], [place], [place] and [place]. This disclosure is being madepursuant to the Care Everywhere program and may not contain all information available regarding this patient. Last updated 18.[facility] Allergies No known active allergies Immunizations Immunization Administration Dates Next Due TDAP (7yrs+) 01/10/2019 Social History Tobacco Use Types Packs/Day Years Used Date Smoking Tobacco: Never Assessed Comments Unknown Sex and Gender Information Value Date Recorded Sex Assigned at Not on file Legal Sex Female 9:46 AM CDT Gender Identity Not on file Sexual Orientation Not on file Plan of Treatment Health Maintenance Due Date Last Done Comments COLOGUARD (AGES 45-75) - COL ON CA SCREENING 1962 COLON MONITORING 1962 COLONOSCOPY - COLON CA SCREENING 1962 CT COLONOGRAPHY - COLON CA SCREENING 1962 Colorectal Cancer Screening 1962 FIT - COLON CA SCREENING 1962 FLEX SIG - COLON CA SCREENING 1962 LIPID TESTING 1962 MAMMOGRAM 1962 HIV SCREENING 1977 HEPATITIS C SCREENING 04/10/1980 PNEUMOCOCCAL VACCINE 50+ (1 of 1 - PCV) 2012 ZOSTER VACCINE (1 of 2) 2012 COVID-19 VACCINE ( - 2023-2 5 season) 2024 DEPRESSION SCREENING 07/11/2024 INFLUENZA VACCINE (Season Ended) 2025 06/14/2014, 05/03/2013 DTAP/TDAP/TD VACCINES (2 - T d or Tdap) 01/10/2029 01/10/2019 Respiratory Syncytial Virus (RSV) Vaccine Pt: or over 60 yrs (1 - 1-dose 75+ series) 2037 HEPATITIS B VACCINE Aged Out No longe r eligible based on patient's age to complete this topic HIB VACCINE Aged Out No longer eligi ble based on patient's age to complete this topic HPV VACCINE Aged Out No longer eligi ble based on patient's age to complete this topic MENINGOCOCCAL (Group B) VACCINE SHARED DECISION-MAKING Aged Out No longer eligible based on patient's age to complete this topic MENINGOCOCCAL GROUPS A/C/Y/W VACCINE Aged Out No longer eligible b ased on patient's age to complete this topic Insurance [facility]
[2024-12-06 15:45] LABS: Strep Group A RT-PCR NOT DETECTED (Negative)
[2024-12-06 15:57] LABS: Influenza A QL RT-PCR Negative (Negative); Influenza B QL RT-PCR Negative (Negative); RSV RNA, RT-PCR Negative (Negative); SARS-CoV-2 RNA PCR Negative (Negative)
== END 2024-12-06 14:59 | disposition home or self-care (01) ==
PROVIDERS: PCP Nurse Practitioner Family; Visit Provider Internal Medicine
DX: J01.90 Acute sinusitis, unspecified (principal); Z20.822 Contact with and (suspected) exposure to COVID-19
CPT/HCPCS: 87637; 87651